=== PATIENT | female | born 1980 | race Caucasian/White ===

== ENCOUNTER 2021-08-31 22:24 | Emergency (ER) | payer OTHER ==
[~2021-08-31 22:24] MED LIST: CLARITIN10 MG PO; IBUPROFEN800 MG PO; NEURONTIN 400400 MG PO
[2021-08-31 23:45] LABS: HEMOGLOBIN 12.5 gm/dl (12.3-15.3); RED BLOOD COUNT 4.33 M/UL (4.00-5.10); WHITE BLOOD COUNT 8.6 K/UL (4.5-11.0)
[2021-09-01 00:18] LABS: BUN/CREATININE RATIO 9 (0-10)
== END 2021-09-01 06:00 ==
LOC: ER1 22:24
PROVIDERS: Student in an Organized Health Care Education/Training Program
DX: K92.2 Gastrointestinal hemorrhage, unspecified (principal); Z20.822 Contact with and (suspected) exposure to COVID-19; F17.210 Nicotine dependence, cigarettes, uncomplicated; Z91.041 Radiographic dye allergy status
CPT/HCPCS: 80053; 82272; 82550; 82553; 84484; 85025; 96365; 96375; 96376; 99285; J1200; J2270; J2405; J2930; Q9967; U0002

== ENCOUNTER 2021-11-04 06:50 | Emergency (ER) | payer OTHER ==
[2021-11-04 07:44] LABS: HEMOGLOBIN 12.2 gm/dl (12.3-15.3); RED BLOOD COUNT 4.29 M/UL (4.00-5.10); WHITE BLOOD COUNT 7.6 K/UL (4.5-11.0)
[2021-11-04 08:33] LABS: BUN/CREATININE RATIO 10 (0-10)
== END 2021-11-04 08:45 | disposition home or self-care (01) ==
LOC: ER1 06:50
PROVIDERS: Emergency Medicine
DX: M79.89 Other specified soft tissue disorders (principal); Z96.651 Presence of right artificial knee joint
CPT/HCPCS: 80053; 85025; 99283